=== PATIENT | female | born 1940 | race Caucasian/White ===

== ENCOUNTER → 2018-03-12 | Outpatient (CLI) | payer OTHER ==
[~2018-03-12] MED LIST: ACETAMINOPHEN325 M1 PO; ACIDOPHILUS1 EAC3 PO; ALPRAZOLAM 0.50.5 M1 PO; ALPRAZOLAM 0.50.5 MG PO; AMLODIPINE PO; ANCEF 1GM1 GM/50 M1; CALCIUM 600 +1 EAC1 PO; CALCIUM 600 +1 EAC5 PO; CEFAZOLIN 1GM VI1 G1; CELEXA40 MG PO; CENTRUM SILVER1 EAC1 PO; CHLORPROMAZINE10 M1 PO; COLACE100 MG PO; CYMBALTA30 MG PO; CYMBALTA60 MG PO; ENOXAPARIN40 MG/0.4; FLEXERIL PO; GLYCOLAX POWDER17 G1; HYDROCODON-ACE1 EAC7 PO; IRON; METAMUCIL PAC1 UDPKT PO; MIRALAX255 GM PO; MOM PO; MULTIVITAMINS PO; MULTIVITAMINS1 EAC7 PO; NORCO 7.5-3251 EACH; NORCO 7.5-3251 EACH PO; NORVASC 5 MG TAB5 MG PO; OMEPRAZOLE 20 M20 M1 PO; OMEPRAZOLE 20 M20 MG PO; OXYCONTIN CR 1010 M1 PO; PROTONIX40 M2 PO; ZOCOR 20 MG TAB20 M1 PO
== END ==
LOC: M.RAD 12:28
DX: Z13.820 Encounter for screening for osteoporosis (principal); Z78.0 Asymptomatic menopausal state

== ENCOUNTER 2018-04-18 16:58 | Emergency (ER) | payer OTHER ==
[~2018-04-18] VITALS: Ht 157.5 cm; Wt 101.2 kg
[2018-04-18 19:35] VITALS: BP 178/87
== END 2018-04-18 19:35 | disposition home or self-care (01) ==
LOC: M.ERS 16:58
DX: S09.8XXA Other specified injuries of head, initial encounter (principal); Z90.710 Acquired absence of both cervix and uterus; Z96.653 Presence of artificial knee joint, bilateral; Z88.8 Allergy status to other drugs, medicaments and biological substances; W18.39XA Other fall on same level, initial encounter; Y93.89 Activity, other specified; Y92.481 Parking lot as the place of occurrence of the external cause; Y99.8 Other external cause status